=== PATIENT | male | born 1945 | race Caucasian/White ===

== ENCOUNTER 2019-08-19 20:13 | Emergency (ER) | payer MEDICARE, BC ==
[2019-08-19] MEDS ORDERED: Lidocaine 1% w/Epinephrine 1:100K 20 ML VIAL ONE (21:19)
== END 2019-08-19 22:05 | disposition home or self-care (01) ==
LOC: ERS 20:13
DX: M71.121 Other infective bursitis, right elbow (principal); L02.413 Cutaneous abscess of right upper limb; I10 Essential (primary) hypertension; E78.00 Pure hypercholesterolemia, unspecified; E03.9 Hypothyroidism, unspecified; Z79.899 Other long term (current) drug therapy
CPT/HCPCS: 10060; 87070; 87205